=== PATIENT | female | born 1985 | race Two or more races ===

== ENCOUNTER → 2018-02-02 | Emergency (ER) | payer OTHER ==
[~2018-02-02] VITALS: Ht 149.9 cm; Wt 91.2 kg
[2018-02-02 09:50] VITALS: BP 132/73
== END | disposition home or self-care (01) ==
LOC: ER 09:52
DX: G56.01 Carpal tunnel syndrome, right upper limb (principal); Z88.6 Allergy status to analgesic agent
CPT/HCPCS: 99283; A4606; Z7610